=== PATIENT | female | born 1975 | race Two or more races ===

== ENCOUNTER 2021-05-11 18:00 | Emergency (ER) | payer MEDICAID ==
[~2021-05-11] VITALS: Ht 154.9 cm; Wt 77.3 kg
[2021-05-11 18:31] VITALS: BP 127/79
[2021-05-12] MEDS ORDERED: ACETAMINOPHEN 325 MG TABLET PO ONE (00:30)
[2021-05-12] MEDS ORDERED: IBUPROFEN 400 MG TABLET PO ONE (00:30)
== END 2021-05-12 01:17 | disposition home or self-care (01) ==
LOC: EMS 18:03
DX: M54.50 Low back pain, unspecified (principal)
CPT/HCPCS: 72100; 99283